=== PATIENT | male | born 1950 | race Native Hawaiian/Other Pacific Islander ===

== ENCOUNTER 2016-11-24 09:22 | Day surgery (SDC) | payer OTHER ==
[2016-11-21 10:04] VITALS: BMI 24.6
[2016-11-24] MEDS ORDERED: Midazolam 2 MG/2 ML VIAL ONE (13:23)
[2016-11-24] MEDS ORDERED: Iohexol 350mg/ml 100 ML ONE (13:36)
--- NOTE | 2016-11-24 14:52 | VASCLAB ---
PROCEDURE: Ultrasonography renal arterial evaluation HISTORY: Hypertension COMPARISON: None available. TECHNIQUE: Real-time ultrasonography evaluation of the renal arteries were performed. Comparison is made to the aorta. Report prepared by JAZMINE Emmanuel, RVT FINDINGS: AORTA: Patent. Peak systolic velocity 92 centimeters/second RIGHT RENAL ARTERY: Renal artery to aorta ratio: 1.5 * Proximal segment: Patent. Peak systolic velocity 138 centimeters/second * Mid segment: Patent. Peak systolic velocity 142 centimeters/second * Distal segment: Patent. Peak systolic velocity 98 centimeters/second Other findings: Right Kidney measures approximately 10.82 centimeters. LEFT RENAL ARTERY: Renal artery to aorta ratio: 1.6 * Proximal segment: Patent. Peak systolic velocity 151 centimeters/second * Mid segment: Patent. Peak systolic velocity 142 centimeters/second * Distal segment: Patent. Peak systolic velocity 122 centimeters/second Other findings: Left Kidney measures approximately 10.93 centimeters. IMPRESSION: No definite hemodynamically significant stenosis involving the renal arteries as visualized.
[2016-11-24 18:28] VITALS: BP 120/77; PULSE 74; RESP 18; TEMP 97.8; O2SAT 98
--- NOTE | 2016-11-25 02:18 | CARDCATH ---
PROCEDURE DATE: 11/24/2016 PROCEDURES: 1. Left heart catheterization. 2. Coronary angiogram. CLINICAL INDICATIONS: 1. Dyspnea. 2. Chronic diastolic heart failure. 3. Abnormal stress test. 4. History of coronary artery disease and history of stent. PERFORMING PHYSICIAN: Dr. Abdulaziz Devlin. PROCEDURE IN DETAIL: After informed consent, the patient was prepped and draped in the usual sterile fashion. A 2% lidocaine was given in the right wrist per local anesthesia. Using micropuncture technique, 6-Swazi sheath was introduced into the right radial artery. Using the usual diagnostic catheter, left heart catheterization, coronary angiogram was formed. The patient tolerated the procedure well. FINDINGS: 1. Left main coronary artery is patent. 2. Proximal mid and distal LAD is patent. Diagonal 1 artery has a 90% to 99% long stenosis. However, this diagonal artery was a small caliber artery. 3. Left circumflex artery is patent, prior stent is patent. Small obtuse marginal 1 has 99% stenosis. 4. Right coronary artery is dominant and patent, prior stent is patent. 5. LV ejection fraction is 40% to 45%. Apical hypokinesis. EDP is 10. No gradient across the aortic valve. IMPRESSION: 1. Small vessel disease. Diagonal artery has a 90% to 99% stenosis. Small OM-1 has 99% stenosis. 2. Recommend medical management for now. If the patient is symptomatic, we will consider intervening diagonal artery. Abdualziz Devlin MD [facility]
--- NOTE | 2016-11-25 10:02 | CARD ---
APPROVED REPORT EXAM: Two-dimensional and M-mode echocardiogram with Doppler and color Doppler. Other Information Quality : GoodRhythm : NSR INDICATION STENT IN 2011 RISK FACTORS Hypertension Hyperlipidemia 2D DIMENSIONS IVSd1.1 (0.7-1.1cm)LVDd4.9 (3.9-5.9cm) LVOT Diameter1.8 (1.8-2.4cm)PWd1.2 (0.7-1.1cm) RVOT Diameter1.5 cmIVSs1.3 (0.8-1.2cm) LVDs3.8 (2.5-4.0cm)FS (%) 22.0 % PWs2.7 (0.8-1.2cm)LVEF (%)44.4 (>50%) M-Mode DIMENSIONS RVDd1.42 (2.1-3.2cm)Left Atrium (MM)3.77 (2.5-4.0cm) IVSd1.01 (0.7-1.1cm)Aortic Root3.22 (2.2-3.7cm) LVDd2.83 (4.0-5.6cm)Aortic Cusp Exc.1.85 (1.5-2.0cm) PWd3.43 (0.7-1.1cm)FS (%) 69 % LVDs6.13 (2.0-3.8cm)LVEF (%)284 (>50%) Aortic Valve AoV Peak Wzcplqmq381.4cm/sAoV VTI28.4cmAO Peak GR.5mmHg LVOT Peak Arymlqhx19.9cm/Michael Mean GR.4mmHgAVA (VMAX)1.61cm2 Mitral Valve MV E Oqqqqogt76.6cm/sMV A Puqttqui02.4cm/sE/A ratio0.8 TDI E/Lateral E'0.0E/Medial E'0.0 Pulmonary Valve PV Peak Pcrcorxq00.5cm/sPV Peak Grad.3mmHg Tricuspid Valve TR Peak [id number]/sTR Peak Gr.63hkCpOKUX76gsXq <Conclusion> Left ventricle: thickness: aymmetric thickening; size: normal; moderate diffuse hypokinesis especially pronounced at the apex; overall ejection fraction: 40 %: diastolic filling pressures: elevated Mitral valve: annulus: normal: leaflets: normal: excursion: normal; no significant trans-mitral gradient:mild incompetence: left atrium: normal Aortic valve: leaflets: normal: excursion: normal; no significant trans-aortic gradient: No significant incompetence: aortic root: normal Right sided Structures: Pulmonary valve: normal; no significant incompetence; Tricuspid valve: normal; no significant incompetence: Intra-cardiac hemodynamics: pulmonary systolic pressures: normal; central venous pressures: normal No pericardial effusion
== END 2016-11-24 18:39 | disposition home or self-care (01) ==
LOC: C.CATHLAB 09:22
PROVIDERS: ATTEND Internal Medicine Cardiovascular Disease
DX: I50.22 Chronic systolic (congestive) heart failure (principal); R94.39 Abnormal result of other cardiovascular function study; I10 Essential (primary) hypertension; E78.5 Hyperlipidemia, unspecified
CPT/HCPCS: 93306; 93458; 93975; 94770; C1769; C1887; J1644; J2250; J3010; Q9967